=== PATIENT | female | born 1955 | race Caucasian/White ===

== ENCOUNTER 2022-08-09 09:57 | Emergency (ER) | payer MEDICARE, OTHER, SELFPAY ==
[2022-08-09 10:07] VITALS: BP 156/84; PULSE 87; RESP 20; TEMP 36; O2SAT 100; BMI 31.1
--- NOTE | 2022-08-09 10:23 | DI.US.S_ITS ---
PROCEDURE: US PERIPH VENOUS LOW EXTREM RT INDICATIONS: PAIN, EDEMA TECHNIQUE: Real-time imaging, as well as color and pulse Doppler interrogation, were performed of the lower extremity deep veins from the inguinal ligament to the popliteal fossa. COMPARISON: None. FINDINGS: The common femoral, femoral and popliteal veins are normally compressible, and free of intraluminal thrombus. Color and pulse Doppler demonstrate normal phasic intraluminal flow. There is normal augmentation response to distal compression maneuver. Superficial venous thrombosis in the greater set extending from the mid thigh to the mid calf IMPRESSION: No sonographic evidence of DVT. There is superficial venous thrombosis in the greater saphenous vein extending from the mid thigh to the mid calf. Dictated by: Mihai Magallanes M.D. on 08/09/2022 at 11:18 Approved by: Mihai Magallanes M.D. on 08/09/2022 at 11:19
--- NOTE | 2022-08-09 14:14 | ED.EXTPRO ---
HPI - Extremity Problem <Alisson Kitchen PA-C - Last Filed: 08/09/22 14:20> General Chief complaint: Extremity Problem,Nontraumatic Stated complaint: concern for blood clot in leg Time Seen by Provider: 08/09/22 12:49 Source: patient Mode of arrival: Ambulatory History of Present Illness HPI Narrative: 67-year-old female with past medical history factor 5 Leiden presents to the ED with 9 days of right-sided leg pain. Patient states her symptoms started as pain between the knee and the calf on the medial aspect, over the last 3 days the pain has moved proximal and extends up to mid thigh. Patient states that the areas feels sore to touch, were more erythematous when it 1st started but not erythematous anymore. Patient denies numbness, tingling, weakness. Patient endorses a prior DVT. Patient endorses multiple superficial venous thrombosis. Patient is currently not on anticoagulation for the factor 5 Leiden. Patient denies chest pain, shortness of breath, fever, chills, nausea, vomiting. Related Data Previous Rx's Medication Instructions Recorded apixaban 5 mg (74 tabs) tablets in See Rx Instructions PO .COMPLEX 08/09/22 a dose pack (Eliquis DVT-PE Treat #74 ea 30D Start) Allergies Allergy/AdvReac Type Severity Reaction Status Date / Time iodine Allergy Verified 08/09/22 11:04 Penicillins Allergy Verified 08/09/22 11:04 Sulfa (Sulfonamide Allergy Verified 08/09/22 11:04 Antibiotics) Review of Systems <Alisson Kitchen PA-C - Last Filed: 08/09/22 14:20> Review of Systems ROS Unobtainable: All systems reviewed & are unremarkable except as noted in HPI and below Constitutional Constitutional: Denies chills, Denies fatigue, Denies fever(s), Denies frequent falls, Denies lethargy and Denies weakness Eyes Eyes: Denies change in vision, Denies eye discharge, Denies irritation and Denies loss of vision ENT Ears, Nose, Mouth, and Throat: Denies change in voice, Denies dizziness, Denies neck pain, Denies sore throat and Denies throat swelling Cardiovascular Cardiovascular: Denies chest pain, Denies irregular heart rhythm, Denies lightheadedness, Denies palpitations, Denies dyspnea, Denies dyspnea on exertion and Denies orthopnea Respiratory Respiratory: Denies cough, Denies dyspnea, Denies dyspnea on exertion and Denies wheezing Gastrointestinal Gastrointestinal: Denies abdominal pain, Denies change in bowel habits, Denies diarrhea, Denies nausea and Denies vomiting Genitourinary Genitourinary: Denies hematuria, Denies flank pain, Denies urinary incontinence and Denies urinary urgency Musculoskeletal Musculoskeletal: Denies back pain, Denies muscle weakness, Denies neck pain, Denies numbness and Denies tingling Comments: Right leg pain Integumentary/Breasts Skin/Breast: Denies pruritus, Denies erythema, Denies rash and Denies wounds Neurologic Neurologic: Denies behavioral changes, Denies confusion, Denies dizziness, Denies frequent falls, Denies loss of vision, Denies numbness, Denies tingling and Denies weakness Psychiatric Psychiatric: Denies anxiety, Denies behavioral changes, Denies confusion, Denies depression, Denies homicidal ideation and Denies suicidal ideation Endocrine Endocrine: Denies fatigue, Denies flushing and Denies palpitations Hematologic/Lymphatic Hematologic/Lymphatic: Denies easy bruising Allergic/Immunologic Allergic/Immunologic: Denies urticaria, Denies throat swelling and Denies wheezing Patient History <Alisson Kitchen PA-C - Last Filed: 08/09/22 14:20> Social History Smoking Status: Never smoker Smoking Status: Never smoker Substance Use Type: does not use Exam <Alisson Kitchen PA-C - Last Filed: 08/09/22 14:20> Narrative Exam Narrative: Const General:?cooperative, healthy appearing and comfortable [facility] Head:?normal to inspection Ears:?hearing grossly normal bilaterally Nose:?external nose normal Face and sinus:?normal facial exam and sinuses nontender Mouth:?oral mucosae normal Throat:?posterior oropharynx normal Eyes General:?appearance normal, both eyes and all related structures Neck Neck:?normal visual inspection and no lymphadenopathy noted Resp Effort & Inspection:?normal respiratory effort Auscultation:?clear to auscultation bilaterally Cardio Rate:?regular rate Rhythm:?regular rhythm Musculoskeletal Tenderness to palpation of medial aspect of right leg between mid calf to mid thigh. No erythema, swelling, bruising, deformities noted on exam. Full range of motion. Strength and sensation intact. Patient is neurovascularly intact. Neuro General:?patient alert, patient awake and patient oriented x3 Initial Vital Signs Initial Vital Signs: Vital Signs Temperature 96.8 F L 08/09/22 10:07 Pulse Rate 87 08/09/22 10:07 Respiratory Rate 20 08/09/22 10:07 Blood Pressure 156/84 H 08/09/22 10:07 Pulse Oximetry 100 08/09/22 10:07 Oxygen Delivery Method 08/09/22 10:07 <Rosie Mckeon DO - Last Filed: 08/12/22 14:35> Initial Vital Signs Initial Vital Signs: Vital Signs Temperature 96.8 F L 08/09/22 10:07 Pulse Rate 87 08/09/22 10:07 Respiratory Rate 20 08/09/22 10:07 Blood Pressure 156/84 H 08/09/22 10:07 Pulse Oximetry 100 08/09/22 10:07 Oxygen Delivery Method 08/09/22 10:07 Course <Alisson Kitchen PA-C - Last Filed: 08/09/22 14:20> Orders Ordered: ED Orders 08/09/22 10:23 US periph venous low extrem rt Stat Vital Signs Vital signs: Vital Signs - 8 hr 08/09/22 10:07 Temperature 96.8 F L Pulse Rate 87 Respiratory Rate 20 Blood Pressure 156/84 H Pulse Oximetry 100 Oxygen Delivery Method Room Air <Rosie Mckeon DO - Last Filed: 08/12/22 14:35> Orders Ordered: ED Orders 08/09/22 10:23 US periph venous low extrem rt Stat Vital Signs Vital signs: Vital Signs - 8 hr 08/09/22 10:07 Temperature 96.8 F L Pulse Rate 87 Respiratory Rate 20 Blood Pressure 156/84 H Pulse Oximetry 100 Oxygen Delivery Method Room Air MDM - Extremity (Nontraumatic) <SHAWN Wong Last Filed: 08/09/22 14:20> Imaging Data US - DVT: Radiologist's Impression: PROCEDURE:? US PERIPH VENOUS LOW EXTREM RT ? INDICATIONS:? PAIN, EDEMA ? TECHNIQUE:? Real-time imaging, as well as color and pulse Doppler interrogation, were performed of the lower extremity deep veins from the inguinal ligament to the popliteal fossa.? ? COMPARISON:? None. ? FINDINGS:? The common femoral, femoral and popliteal veins are normally compressible, and free of intraluminal thrombus.? Color and pulse Doppler demonstrate normal phasic intraluminal flow.? There is normal augmentation response to distal compression maneuver. ?Superficial venous thrombosis in the greater set extending from the mid thigh to the mid calf ? IMPRESSION:? No sonographic evidence of DVT.? There is superficial venous thrombosis in the greater saphenous vein extending from the mid thigh to the mid calf. ? ? Dictated by: Mihai Magallanes M.D. on 08/09/2022 at 11:18 ? ? Approved by: Mihai Magallanes M.D. on 08/09/2022 at 11:19 ? MDM Narrative Medical decision making narrative: 67-year-old female with past medical history factor 5 Leiden presents to the ED with 9 days of right-sided leg pain. Concern for DVT versus superficial venous thrombosis versus musculoskeletal sprain/strain versus other. Obtained ultrasound right lower extremity. Imaging shows a superficial venous thrombosis of the great saphenous vein extending from the mid thigh to the mid calf. Will start patient on anticoagulation. Patient prescribed Eliquis. ED precautions discussed with patient. Patient verbalized understanding. Patient agrees to follow-up with her PCP as soon as possible. Discharge Plan Departure Patient Disposition: Home Clinical Impression: Superficial vein thrombosis Instructions: DI for Deep Vein Thrombosis Activity Restrictions/Additional Instructions: You were evaluated in the ED today for right-sided leg pain. Your ultrasound shows a superficial venous thrombosis in the greater saphenous vein. Which extends from about mid thigh all the way to below the knee. Given the size and location of the clot, it is recommended that you be anticoagulated. You are therefore being started on Eliquis and will take it for 3 months. Return to the ED if you experience worsening symptoms, chest pain, shortness of breath. Please follow-up with your PCP in 3-4 days. Prescriptions: New Eliquis DVT-PE Treat 30D Start 5 mg (74 tabs) tablets,dose pack See Rx Instructions .ROUTE .COMPLEX Qty: 74 0RF Rx Instructions: orally per package directions Visit Report Forms: Patient Portal/API <Rosie Mckeon DO - Last Filed: 08/12/22 14:35> [facility] Attestation: I was immediately available in the department for consultation. Documentation has been reviewed. Case discussed agree with plan for anticoagulation based on size and location.
[2022-08-09 14:21] VITALS: BP 139/78; PULSE 70; RESP 18; O2SAT 100
== END 2022-08-09 14:21 | disposition home or self-care (01) ==
PROVIDERS: Emergency Provider Student in an Organized Health Care Education/Training Program
DX: I82.401 Acute embolism and thrombosis of unspecified deep veins of right lower extremity (principal); Z79.01 Long term (current) use of anticoagulants
CPT/HCPCS: 93971; 99283

== ENCOUNTER 2024-12-20 09:44 | Emergency (ER) | payer MEDICARE, OTHER, SELFPAY ==
[2024-12-20 10:02] VITALS: BP 200/93; PULSE 92; RESP 19; TEMP 36.6; O2SAT 99; BMI 31.0
--- NOTE | 2024-12-20 10:33 | DI.US.S_ITS ---
PROCEDURE: US EXTREMITY NONVASC LOWER LT INDICATIONS: EDEMA, PAIN; HX DVT TECHNIQUE: Real-time scanning was performed of the left lower extremity , with image documentation. COMPARISON: None. FINDINGS: Filling defect within the left anterior tibial vein. Remaining deep veins are widely patent. Greater saphenous vein is occluded to mid to distal portions. IMPRESSION: Deep venous thrombosis of a calf vein. Greater saphenous vein is occluded in the mid to distal portions, without central extension. Dictated by: Ant Richey M.D. on 12/20/2024 at 13:19 Approved by: Ant Richey M.D. on 12/20/2024 at 13:26
--- NOTE | 2024-12-20 11:08 | ED.LOWEXIN ---
HPI - Extremity Injury (Lower) <Marian Arzate PA-C - Last Filed: 12/20/24 14:53> General Chief Complaint: Extremity Injury, Lower Stated Complaint: poss blood clot L leg Time Seen by Provider: 12/20/24 11:08 Source: patient Mode of arrival: Ambulatory History of Present Illness HPI Narrative: Ms. Jacob is a pleasant 69-year-old female with a past medical history of factor 5 Leiden with prior superficial and deep venous thrombosis of the legs not on anticoagulation times 10 months, sleep apnea, basal cell carcinoma of the legs who presents to the emergency department for left leg pain and swelling with concern for blood clot x2 weeks. Patient reports she noticed some tender veins in the left lower leg about 2 weeks ago but this resolved however the pain started traveling proximally up the leg and she now has an area of tenderness and erythema in the medial aspect of the right knee/thigh area. These symptoms feel similar to when she had blood clots in the past. She denies any trauma or injury to the leg. Denies chest pain or shortness of breath but she reports that she has noticed slight increased work of breathing with exertion over the last week but she also just started using a CPAP 1 week ago. Denies fevers, chills, cough. Denies any source of bleeding such as hematuria melena, hematochezia, hematemesis, no recent falls or head trauma. Reports that she does not tolerate Eliquis but she does tolerate Xarelto. Related Data Previous Rx's Medication Instructions Recorded apixaban 5 mg (74 tabs) tablets in See Rx Instructions PO .COMPLEX 08/09/22 a dose pack (Eliquis DVT-PE Treat #74 ea 30D Start) rivaroxaban 15 mg tablet (Xarelto) 15 mg PO BID 21 days #42 tabs 12/20/24 rivaroxaban 20 mg tablet (Xarelto) 20 mg PO DAILY 9 days #9 tabs 12/20/24 Allergies Allergy/AdvReac Type Severity Reaction Status Date / Time iodine Allergy Verified 12/20/24 10:46 Penicillins Allergy Verified 12/20/24 10:46 Sulfa (Sulfonamide Allergy Verified 12/20/24 10:46 Antibiotics) Review of Systems <Marian Arzate PA-C - Last Filed: 12/20/24 14:53> Review of Systems ROS Unobtainable: All systems reviewed & are unremarkable except as noted in HPI and below Patient History <Marian Arzate PA-C - Last Filed: 12/20/24 14:53> Social History Smoking Status: Never smoker Smoking Status: Never smoker Exam <Marian Arzate PA-C - Last Filed: 12/20/24 14:53> Narrative Exam Narrative: GENERAL: 69 year old patient appears stated age. Well-developed patient, in no acute distress. HEAD: Atraumatic. Normocephalic. EYES: PERRL. Extraocular motions intact. No scleral icterus. No injection or drainage. NECK: Trachea midline. Cervical ROM intact. CARDIOVASCULAR: Regular rate and rhythm. RESPIRATORY: ?Nonlabored respirations. ?Speaking in clear, full sentences. ?Clear to auscultation. Breath sounds equal bilaterally. No wheezes, rales, or rhonchi. ? EXTREMITIES: Mild tenderness to palpation of the medial left knee/thigh region with proximally 3 cm area of erythema and tenderness. No calf tenderness or swelling bilaterally. She does have various spots of basal cell carcinoma in the bilateral lower extremities. Strong DP and PT pulses on both feet, sensation intact to light touch, brisk capillary refill. NEURO: AOx3. ?Clear speech. ?Moves all 4 extremities appropriately. Initial Vital Signs Initial Vital Signs: Vital Signs Temperature 97.9 F 12/20/24 10:02 Pulse Rate 92 H 12/20/24 10:02 Respiratory Rate 12/20/24 10:02 Blood Pressure 200/93 H 12/20/24 10:02 Pulse Oximetry 99 12/20/24 10:02 Oxygen Delivery Method Room Air 12/20/24 10:02 <Darryl Fuentes MD - Last Filed: 12/20/24 18:54> Initial Vital Signs Initial Vital Signs: Vital Signs Temperature 97.9 F 12/20/24 10:02 Pulse Rate 92 H 12/20/24 10:02 Respiratory Rate 12/20/24 10:02 Blood Pressure 200/93 H 12/20/24 10:02 Pulse Oximetry 99 12/20/24 10:02 Oxygen Delivery Method Room Air 12/20/24 10:02 Course <Marian Arzate PA-C - Last Filed: 12/20/24 14:53> Orders Ordered: ED Orders 12/20/24 10:33 US extremity nonvasc lower lt Stat Vital Signs Vital signs: Vital Signs - 8 hr 12/20/24 11:54 12/20/24 14:48 Temperature 97.7 F Pulse Rate 83 75 Respiratory Rate 19 14 Blood Pressure 141/69 H 169/77 H Pulse Oximetry 100 99 Oxygen Delivery Method Room Air <Darryl Fuentes MD - Last Filed: 12/20/24 18:54> Orders Ordered: ED Orders 12/20/24 10:33 US extremity nonvasc lower lt Stat Vital Signs Vital signs: Vital Signs - 8 hr 12/20/24 11:54 12/20/24 14:48 Temperature 97.7 F Pulse Rate 83 75 Respiratory Rate 19 14 Blood Pressure 141/69 H 169/77 H Pulse Oximetry 100 99 Oxygen Delivery Method Room Air MDM - Extremity Injury (Lower) <Marian Arzate PA-C - Last Filed: 12/20/24 14:53> Medical Records Attestation: I reviewed the patient's medical records. Medical records narrative: large superficial venous thrombosis 08/09/2022 Imaging Data Left Leg Vasc US: Radiologist's Impression: PROCEDURE: US EXTREMITY NONVASC LOWER LT INDICATIONS: EDEMA, PAIN; HX DVT TECHNIQUE: Real-time scanning was performed of the left lower extremity , with image documentation. COMPARISON: None. FINDINGS: Filling defect within the left anterior tibial vein. Remaining deep veins are widely patent. Greater saphenous vein is occluded to mid to distal portions. IMPRESSION: Deep venous thrombosis of a calf vein. Greater saphenous vein is occluded in the mid to distal portions, without central extension. MDM Narrative Medical decision making narrative: 69-year-old female with a past medical history of factor 5 Leiden with prior superficial and deep venous thrombosis of the legs not on anticoagulation times 10 months, sleep apnea, basal cell carcinoma of the legs who presents to the emergency department for left leg pain and swelling with concern for blood clot x2 weeks. Differential diagnosis includes but is not limited to DVT, superficial venous thrombosis, thrombophlebitis, etc. On exam patient is in no acute distress, nontoxic-appearing, blood pressure elevated in triage, 99% O2 on room air. Physical exam reveals localized area of tenderness and erythema on the left medial knee/thigh region. Vascular ultrasound obtained in triage. When asked about shortness of breath, patient states that she is not short of breath but she has had some change in her breathing with exertion over the last week after starting CPAP, informed patient that in order to rule out pulmonary embolism need to proceed with labs, EKG, chest CT in the event that she does have a DVT however patient declines this at this time stating that her breathing is fine. We will proceed vascular ultrasound only. Vital signs improved. Lower extremity ultrasound reveals deep venous thrombosis of a calf vein, greater saphenous vein is occluded in the mid to distal portions without central extension. Patient declines Eliquis and states that she had adverse reactions in the past with a she does tolerate Xarelto. Attempted to prescribe patient's Xarelto 30 day starter pack however called numerous pharmacies in the area and none of them have this starter pack, however [facility] [address] does have the 15 mg tablets at this time. Therefore prescribed patient 21 days of 15 mg b.i.d. followed by 9 days of 20 mg once daily. Patient understands that this is only a 30 day supply and she will need a minimum of 3 months of anticoagulation, we will need to follow up promptly with her primary care doctor for further management. She does not currently have a personal security specialist for her factor 5 Leiden but we did discuss the importance of this. Reviewed signs and symptoms to return to the emergency department for including chest pain, shortness of breath, any other concerns. Patient verbalized understanding of all information is agreeable to plan. <Darryl Fuentes MD - Last Filed: 12/20/24 18:54> Imaging Data Left Leg Vasc US: Radiologist's Impression: PROCEDURE: US EXTREMITY NONVASC LOWER LT INDICATIONS: EDEMA, PAIN; HX DVT TECHNIQUE: Real-time scanning was performed of the left lower extremity , with image documentation. COMPARISON: None. FINDINGS: Filling defect within the left anterior tibial vein. Remaining deep veins are widely patent. Greater saphenous vein is occluded to mid to distal portions. IMPRESSION: Deep venous thrombosis of a calf vein. Greater saphenous vein is occluded in the mid to distal portions, without central extension. I was available for consultation during this patient's encounter patient was primarily seen by above PA, briefly patient found to have clot with a history of having clots has done well with Xarelto in the past represcribed no signs of PE on evaluation per report of PA. Discharge Plan Departure Patient Disposition: Home Clinical Impression: DVT (deep venous thrombosis) Qualifiers: DVT location: lower extremity Affected thrombotic vein of extremity: calf muscle vein Chronicity: acute Laterality: left Qualified Code(s): I82.462 - Acute embolism and thrombosis of left calf muscular vein Instructions: DI for Deep Vein Thrombosis Activity Restrictions/Additional Instructions: Thank you for coming to the emergency department. Today and ultrasound of your left leg revealed a deep venous thrombosis of a calf vein. We have started you on Xarelto 15 mg twice a day for the next 21 days, after that you will need to switch to Xarelto 20 mg once daily for at least 3 months but further managed by your primary care doctor. I have sent the initial 21 day prescription to [facility] in [place], they do not have the 30 day starter pack. After you have completed this first 21 day dosage, you may start the 2nd prescription of 20 mg once daily - therefore 30 days of prescription have been ordered. It is very important to follow up with the primary care doctor as soon as possible for further evaluation. Please return to emergency department you develop chest pain, shortness of breath, any other concerns. Please be aware that blood thinners increase your risk for bleeding so it is very important to come to the emergency room if you develop any bleeding in your stool, vomit, urine, or trauma. You may proceed with using the imiquimod cream on the right leg only. Please follow up with your primary care doctor within the next 2-3 days for ER follow-up. (If you do not have a PCP you can call [phone]. ?to schedule an appointment with an [facility] Primary Care Provider) IF YOU DEVELOP ANY NEW OR WORSENING SYMPTOMS, RETURN TO THE ER! Please read the attached instructions, they highlight more specific treatments and interventions for you at home. Thank you for letting me participate in your care, Marian Arzate PA-C Prescriptions: New Xarelto 15 mg tablet 15 mg PO BID 21 Days Qty: 42 0RF Rx Instructions: must administer with meal Xarelto 20 mg tablet 20 mg PO DAILY 9 Days Qty: 9 0RF Rx Instructions: Start after 21 day pack completed. Must administer with meal. No Action Eliquis DVT-PE Treat 30D Start 5 mg (74 tabs) tablets,dose pack See Rx Instructions .ROUTE .COMPLEX Qty: 74 0RF Rx Instructions: orally per package directions Stand Alone Forms: Patient Portal/API/Survey
--- NOTE | 2024-12-20 11:50 | PC.NURSE ---
Left leg pain (worse around calf and behind knee) Pt states she has a history of blood clots. Pt reports she thinks the blood clot developed from her compression sock pinching her leg at the top of the calf where she feels the pain. Pt able to ambulate and move her extremity appropriately.
[2024-12-20 11:54] VITALS: BP 141/69; PULSE 83; RESP 19; TEMP 36.5; O2SAT 100
[2024-12-20 14:48] VITALS: BP 169/77; PULSE 75; RESP 14; O2SAT 99
== END 2024-12-20 14:50 | disposition home or self-care (01) ==
PROVIDERS: Emergency Provider Physician Assistant
DX: I82.4Z2 Acute embolism and thrombosis of unspecified deep veins of left distal lower extremity (principal); D68.51 Activated protein C resistance
CPT/HCPCS: 76882; 99281; 99283